=== PATIENT | female | born 1990 | race Caucasian/White ===

== ENCOUNTER → 2020-06-11 15:27 | Outpatient (CLI) | payer BC, SELFPAY ==
--- NOTE | ~2020-06-11 | US_ITS ---
EXAMINATION: US axilla RT HISTORY: Enlarged and tender right axilla TECHNIQUE: Targeted ultrasound of the right axilla was performed. COMPARISON: 06/19/2015 FINDINGS: There is no evidence of focal abnormal cystic or solid mass in the vicinity of the reported left axillary tenderness and enlargement. IMPRESSION: No specific sonographic correlate is identified for the reported right axillary tenderness and enlarg ement. Further evaluation at this time should be based on clinical assessment. Continued follow-up ph ysical examination is recommended. BI-RADS Category 1: Negative Reviewed, dictated and finalized at location A. IMPRESSION: No specific sonographic correlate is identified for the reported right axillary tenderness and enlargement. Further evaluation at this time should be based on clinical assessment. Continued follow-up physical examination is recommended. BI-RADS Category 1: Negative
== END ==
PROVIDERS: Visit Provider Obstetrics & Gynecology Gynecology
DX: R22.2 Localized swelling, mass and lump, trunk (principal)
CPT/HCPCS: 76882

== ENCOUNTER → 2021-01-08 11:13 | Outpatient (CLI) | payer BC, SELFPAY ==
--- NOTE | ~2021-01-08 | US_ITS ---
EXAMINATION: US transvaginal DATE: 01/08/2021 11:51 INDICATION: Pelvic pain TECHNIQUE: Multiple endovaginal sonographic images of the pelvis were obtained. COMPARISON: 02/07/2017 FINDINGS: The uterus measures 8.8 x 4.8 x 4.7 cm. The IUD appears to be within expected position. The endometrial complex measures 4 mm. The right ovary measures 3 x 2 x 2.7 cm. The left ovary measures 3 x 2.5 x 2.6 cm. There is normal vascular flow in the ovaries. There is no free fluid in the pelvis. IMPRESSION: 1. No sonographic correlate for the patient's symptoms. IUD in expected position. Reviewed, dictated and finalized at location A. IMPRESSION: 1. No sonographic correlate for the patient's symptoms. IUD in expected positio n.
== END ==
PROVIDERS: PCP Family Medicine; Visit Provider Nurse Practitioner
DX: R10.2 Pelvic and perineal pain (principal); Z97.5 Presence of (intrauterine) contraceptive device
CPT/HCPCS: 76830

== ENCOUNTER 2021-09-10 11:09 | Outpatient (CLI) | payer BC, SELFPAY ==
--- NOTE | ~2021-09-10 | US_ITS ---
EXAMINATION: US pelvic complete DATE: 09/10/2021 11:22 INDICATION: Pelvic pain and cramping Comparison:01/09/2020 TECHNIQUE: Multiple transabdominal and endovaginal sonographic images of the pelvis performed. FINDINGS: The uterus measures 7.3 x 3.8 x 5.3 cm. There is an IUD present in the endometrium. The end ometrial complex measures 5 mm. The right ovary measures 4.1 x 2.4 x 2.7 cm and the left ovary measures 3.2 x 1.7 x 3.3. There are s mall follicles in each ovary. Normal doppler signal in both ovaries. There is no free fluid in the pelvis. There are no abnormal masses seen on either side. IMPRESSION: 1. Unremarkable pelvic ultrasound. Reviewed, dictated and finalized at location A.
== END 2021-09-10 11:10 ==
LOC: MICIMG 11:10
PROVIDERS: PCP Family Medicine; Visit Provider Nurse Practitioner
DX: R10.2 Pelvic and perineal pain (principal)
CPT/HCPCS: 76856

== ENCOUNTER 2022-07-28 11:05 | Outpatient (NON) | payer BC, SELFPAY | END 2022-07-28 11:06 | disposition home or self-care (01) | LOC: ANHLAB 07-29 11:07 | PROVIDERS: PCP Family Medicine; Visit Provider Nurse Practitioner | DX: D49.2 Neoplasm of unspecified behavior of bone, soft tissue, and skin (principal) | CPT/HCPCS: 88304; 88305 ==

== ENCOUNTER 2022-10-04 13:52 | Outpatient (CLI) | payer BC, SELFPAY ==
--- NOTE | ~2022-10-04 | US_ITS ---
EXAMINATION: US transvaginal DATE: 10/04/2022 14:13 INDICATION: Bilateral adnexal pain Comparison:Ultrasound dated 09/10/2021 TECHNIQUE: Multiple endovaginal sonographic images of the pelvis performed. FINDINGS: The uterus measures 8.7 x 4 x 4.9 cm. The endometrial complex measures 9 mm. The right ovary measures 4 x 2.8 x 2.8 cm and the left ovary measures 2.4 x 2.6 x 1.9 cm. There are small follicles in each ovary. Normal doppler signal in both ovaries. There is no free fluid in the pelvis. There are no abnormal masses seen on either side. IMPRESSION: 1. Unremarkable pelvic ultrasound. Reviewed, dictated and finalized at location A.
== END 2022-10-04 13:53 ==
LOC: MICIMG 13:53
PROVIDERS: PCP Nurse Practitioner; Visit Provider Nurse Practitioner
DX: N83.201 Unspecified ovarian cyst, right side (principal)
CPT/HCPCS: 76830

== ENCOUNTER 2022-10-27 08:00 | Outpatient (NON) | payer BC, SELFPAY | END 2022-10-27 08:01 | disposition home or self-care (01) | PROVIDERS: PCP Nurse Practitioner; Visit Provider Surgery Plastic and Reconstructive Surgery | DX: D23.5 Other benign neoplasm of skin of trunk (principal) | CPT/HCPCS: 88305 ==